=== PATIENT | female | born 1980 | race African-American/Black ===

== ENCOUNTER 2017-10-18 13:28 | Emergency (ER) | payer MEDICARE ==
[~2017-10-18] VITALS: Ht 177.8 cm; Wt 137.4 kg
--- OUTSIDE RECORDS SUMMARY | 2017-10-18 13:30 | XMS REPORT | Clinical Summary ---
Author Author [facility] Address Unknown Phone Unavailable Care Team Providers Care Job Coach Name Role Phone PCP Unavailable Allergies No Known Allergies Current Medications Prescription Sig. Disp. Refills Start End Date Status Date amLODIPine (NORVASC) 10 Take 10 mg by mouth Active MG tablet daily. hydrochlorothiazide Take 25 mg by mouth Active (HYDRODIURIL) 25 MG daily. tablet glucometer (PayfirmaYLE) Use Glucometer to check 1 each 0 07/23/19 Active MiscIndications: blood sugar as per 17 Uncontrolled type 2 instructions. diabetes mellitus without complication, without long-term current use of insulin ([facility]) labetalol (NORMODYNE) 100 Take 1 tablet (100 mg 90 tablet 1 07/23/19 01/19/20 MG tabletIndications: total) by mouth daily 17 17 Possible , with breakfast for 180 , unspecified days. gestational age blood sugar diagnostic 1 strip by Miscellaneous 400 strip 4 07/23/19 07/23/19 (GLUCOSE TEST) route 2 (two) times 17 18 StrpIndications: daily. Uncontrolled type 2 diabetes mellitus without complication, without long-term current use of insulin ([facility]) alcohol swabs Apply 1 application 400 each 4 07/23/19 07/23/19 PadMIndications: topically 2 (two) times 17 18 Uncontrolled type 2 daily For blood sugar diabetes mellitus without testing. complication, without long-term current use of insulin ([facility]) lancets MiscIndications: 1 application by 400 each 4 07/23/19 Uncontrolled type 2 Miscellaneous route 2 17 18 diabetes mellitus without (two) times daily. complication, without long-term current use of insulin ([facility]) Active Problems Problem Noted Date Annual physical exam 03/18/2016 Last Assessment & Plan: Today, we find that your physical exam is within normal limits. We have talked about losing weight and exercise. Making good food choices and increasing activity can help keep you healthy. We are ordering a CBC, CMP, TSH and UA, which are basic lab tests for your annual physical. Please complete these labs while fasting for a minimum of 8 hours. Follow up in 2 weeks for review of labs and further care. Hypertension 08/05/2015 Last Assessment & Plan: Today we note that your blood pressure is not controlled, and you have been out of your medication HCTZ for almost 2 months. We are refilling your medication HCTZ 25mg 1 tablet by mouth each morning for 6 months. We are also starting you on a second blood pressure medication called Amlodipine 10mg 1 tablet by mouth each evening for 6 months. In addition, we are ordering labs today to check your Hypertension and Diabetes. Complete these labs as soon as possible while you are fasting for a minimum of 8 hours. You have stated that you are fasting since 11 pm last night. Finally, we are ordering an EKG to be completed at the hospital next door. Complete this test as soon as possible. Please check your blood pressure at home twice per day for the next week. Check it in the AM and PM each day, and write down the results. Bring in a copy of your results on your next visit. If you find that your blood pressure is at 150/100 or higher consistently, call our office or come in for a visit. If it is high and your feel sick in any way, go directly to the closest ER. If you find that your blood pressure is at 110/70 or lower, call our office or come in for a visit. Make sure to drink plenty of water, and avoid salt as much as possible in your diet. long-term, with proper diet and exercise, weight loss will occur, and that will help your blood pressure. Follow up in 1 week to complete your Annual Physical and review your blood pressure/results. Diabetes mellitus type 2, uncontrolled (HCC) 08/05/2015 Last Assessment & Plan: Today we note that you are in need of a new glucometer and supplies. Pick these up at your pharmacy and use as directed. Follow up in 1 month for further care. 08/05/2015 Last Assessment & Plan: Today we note that you have tested positive for on our in-office urine test. Your estimated Last Menstrual Period was May 10 2016. Using that estimated date, you are about 10 weeks and 3 days , and your expected date of delivery is February 14 2017. This is an estimate and may not be accurate. More accurate dating can be found through your principal technical specialist office. We are referring you to Dr. Shin of [facility], and please call her office and make an appointment as soon as possible. Stop taking your regular vitamins, and switch to an OTC Vitamin. Continue taking your Metformin. Stop taking the Amlodipine and stop taking the Hydrochlorothiazide. We are going to start you on Labetalol for blood pressure control. Please use this new medication as prescribed. Check your blood pressure twice per day for now, and look for BP between 110/70 to 140/85. If it is outside of this window, check it again in 1 hour, and if it is high again, call our office or Dr. Shin. Follow up in our office in [address] Shin. Family History Medical History Relation Name Comments Diabetes Father Hypertension Father Diabetes Mother Hypertension Mother Relation Name Status Comments Father Mother Social History Tobacco Use Types Packs/Day Years Used Date Never Smoker Smokeless Tobacco: Never Used Alcohol Use Drinks/Week oz/Week Comments Yes socially Currently Estimated Date of Delivery Comments Yes Sex Assigned at Date Recorded Not on file Last Filed Vital Signs Not on file Plan of Treatment Health Maintenance Due Date Last Done Comments INFLUENZA VACCINE 02/07/2018 Results Not on fileafter 10/17/2016
--- OUTSIDE RECORDS SUMMARY | 2017-10-18 13:30 | XMS REPORT | Clinical Summary ---
Author Author [facility] Organization [facility] Address Unknown Phone Unavailable Care Team Providers Care Safety Fire Boss Name Role Phone Asked, Pcp PCP Unavailable Allergies No Known Allergies Current Medications Prescription Sig. Disp. Refills Start End Date Status Date Take 1 tablet by mouth Active vit,epce09-gvgx-tejae 29 daily. mg iron- 1 mg tablet per tablet NIFEdipine XL (PROCARDIA Take 30 mg by mouth 01/27/20 Discontin XL) 30 MG 24 hr tablet daily. 17 ued hydroxyprogest,PF,,preg Inject 250 mg into the 01/27/20 Discontin presv, (ADONIS) 250 mg/mL shoulder, thigh, or 17 ued (1 mL) oil buttocks every 7 days. metFORMIN (GLUCOPHAGE) Take 500 mg by mouth 2 01/27/20 Discontin 500 mg tablet (two) times a day with 17 ued meals. Active Problems Problem Noted Date S/P 01/21/2017 Obesity affecting in third trimester 01/17/2017 Advanced maternal age, primigravida in third trimester, antepartum 2016 Chronic hypertension in obstetric context in third trimester 01/17/2017 Diabetes mellitus affecting in third trimester 01/17/2017 labor in third trimester 01/17/2017 Short cervix during in third trimester 01/17/2017 History of poor outcome 01/17/2017 Encounters Date Type Specialty Care Team Description 01/21/2017 Procedure Pass Obstetrics and Gynecology 01/21/2017 Surgery Obstetrics and Gynecology Washington Chung MD DELIVERY, 01/17/2017 [facility] Obstetrics and Gynecology Washington Chung MD Obesity affecting - Encounter in third 01/25/2017 trimester (Primary Dx); Advanced maternal age, primigravida in third trimester, antepartum; Chronic hypertension in obstetric context in third trimester; Diabetes mellitus affecting in third trimester 01/17/2017 Anesthesia Obstetrics and Gynecology Raiza Fu MD Event after 10/17/2016 Immunizations Name Dates Previously Given Next Due FLUCELVAX QUAD PF (0.5mL 01/23/2017 syringe) Tdap 01/23/2017 Social History Tobacco Use Types Packs/Day Years Used Date Former Smoker Alcohol Use Drinks/Week oz/Week Comments No Sex Assigned at Date Recorded Not on file Last Filed Vital Signs Vital Sign Reading Time Taken Blood Pressure 111/62 01/25/2017 5:19 PM CDT Pulse 111 01/25/2017 5:19 PM CDT Temperature 37.1 C (98.8 F) 01/25/2017 5:19 PM CDT Respiratory Rate 19 01/25/2017 5:19 PM CDT Oxygen Saturation 99% 01/25/2017 5:19 PM CDT Inhaled Oxygen - - Concentration Weight 154 kg (340 lb) 01/18/2017 8:00 PM CDT Height 172.7 cm (5' 8") 01/18/2017 8:00 PM CDT Body Mass Index 51.7 01/18/2017 8:00 PM CDT Plan of Treatment Health Maintenance Due Date Last Done Comments DIABETIC FOOT EXAM 1989 DIABETIC RETINAL EYE EXAM 1989 URINE MICROALBUMIN 1989 CERVICAL CANCER SCREENING 2000 INFLUENZA VACCINE 12/08/2017 01/23/2017 Procedures Procedure Name Priority Date/Time Associated Diagnosis Comments ECHOCARDIOGRAM 2D Routine 01/22/2017 Results for this COMPLETE W MMODE SPECTRAL 2:05 PM CDT procedure are in the COLOR DOPPLER (57448) results section. FL AN SPINAL BLOCK Routine 01/21/2017 POST-OP PAIN 8:44 AM CDT Procedure Note - Vasyl Peñaloza MD - 01/21/2017 8:41 AM CDT Spinal Block Performed by: VASYL PEÑALOZA Authorized by: RAIZA FU Patient Location: OR Reason for Block: at surgeon's request, post-op pain management Staff: Performed by: Anesthesio logist patient identified , IV checked, site and side verified, risks and benefits discussed, procedure verified, surgical consent complete, patient position confirmed, monitors and equipment checked and pre-op evaluation complete Spinal Block: Patient Position: Sitting Prep: Betadine Monitoring : Blood pressure monitoring , continuous pulse oximetry and heart rate Approach: Midline Interspace : L2-3 Injection Technique: Single injection Needle: Needle type: Pencan. Needle Gauge: 22 G Assessment : Coagulatio n status: Coagulatio n status verified Block assessment : No apparent complicati ons and patient tolerated procedure well Post procedure: Patient returned to supine position with left lateral displaceme nt Notes: Pt had no relief from epidural after trying injecting 2% lidocaine, so I decided to perform a spinal and remove epidural. Epidural tip intact. Spinal took 3 attempts; 1st with 25Ga Pencan, which was too short, so I switched to 22Ga 5" DELIVERY, 01/21/2017 Intrauterine 12:00 AM CDT Case Notes ANESTHESIA EPIDURAL BLOCK Routine 01/20/2017 11:04 PM CDT Procedure Note - Raiza Fu MD - 01/20/2017 11:04 PM CDT Epidural Block Performed by: RAIZA FU Authorized by: RAIZA FU Patient Location: OB Start Time: 01/20/2017 10:45 PM End Time: 01/20/2017 10:50 PM Reason for Block: labor epidural Anesthesio logist: RAIZA FU Performed by: Anesthesio logisfabrizio Preprocedu re: patient identified , IV checked, site and side verified, risks and benefits discussed, procedure verified, surgical consent completed, patient position confirmed, monitors and equipment checked and pre-op evaluation completed Time Out Performed: 01/20/2017 10:44 PM Patient Position: Sitting Prep: Betadine Monitoring : Blood pressure monitoring , continuous pulse oximetry and heart rate Approach: Midline Interspace : L3-4 Injection Technique: PAUL air Needle Type: Tuohy Needle Gauge: 17 Loss of resistance : 8 cm Catheter at Skin Depth: 13 cm Test Dose: Negative and lidocaine 1.5% with epinephrin e 1-to-200,0 00 Number of Attempts: 1 Pump program started: pain pump Coagulati on status: Coagulatio n status reviewed Block Outcome: No apparent complicati ons, patient comfortabl e and patient tolerated procedure well Post-proce dure: Patient returned to supine position with left lateral displaceme nt and sterile dressing applied Time: 01/20/2017 10:45 PM Pump program changed: pain pump Patient tolerated the procedure well with no apparent complicati ons. Connected to epidural pain pump. after 10/17/2016 Results * POC glucose (01/25/2017 6:01 PM) Only the most recent of 45 results within the time period is included. Component Value Ref Range POC glucose 151 (H) 65 - 99 mg/dL Comment: Meter ID: [id number] Metal Expediter: Abelino Justin Specimen Performing Laboratory [facility] DEPARTMENT OF PATHOLOGY AND GENOMIC MEDICINE [address] [place] [address] * Urinalysis screen and microscopy, with reflex to culture (01/25/2017 12:00 PM) Only the most recent of 2 results within the time period is included. Component Value Ref Range Specimen site Clean catch Color, UA Yellow YELLOW Appearance, UA Slightly Hazy (A) Clear Specific gravity, UA 1.016 1.005 - 1.030 pH, UA 5.5 5.0 - 8.0 Protein, UA 1+ (A) Negative Glucose, UA Negative Negative Ketones, UA Negative Negative Bilirubin, UA Negative Negative Blood, UA Moderate (A) Negative Nitrite, UA Negative NEGATIVE Urobilinogen, UA 2.0 <2.0 E.U./dL Leukocyte esterase, UA Moderate (A) Negative Epithelial cells, UA 2 0 - 15 /HPF WBC, UA 13 (H) 0 - 5 /Hpf RBC, UA >200 (H) 0 - 5 /HPF Bacteria, UA None seen None seen Yeast, UA None seen None Seen Yeast with pseudohyphae, None seen UA Specimen Performing Laboratory Urine [facility] DEPARTMENT OF PATHOLOGY AND GENOMIC MEDICINE [address] [place] [address] * Gram stain (01/25/2017 12:00 PM) Component Value Ref Range Gram stain result Moderate WBC's No organisms seen Comment: Specimen Information Specimen Source: Urine Specimen Site: See UA Specimen Performing Laboratory Urine [facility] DEPARTMENT OF PATHOLOGY AND GENOMIC MEDICINE [address] [place] [address] * Urine culture (01/25/2017 12:00 PM) Only the most recent of 2 results within the time period is included. Component Value Ref Range Urine culture isolate No growth after 1 day. Comment: Specimen Information Specimen Source: Urine Specimen Site: See UA Specimen Performing Laboratory Urine [facility] DEPARTMENT OF PATHOLOGY AND GENOMIC MEDICINE [address] [place] [address] * Hemoglobin A1c (01/25/2017 5:58 AM) Component Value Ref Range Hemoglobin A1C 7.2 (H) 4.0 - 5.6 % Comment: HbA1c cutoffs for diagnosing diabetes: 4.0% - 5.6%=normal 5.7% - 6.4%=increased risk for diabetes (prediabetes) >=6.5%=diabetes Goals for glycemic control (ADA 2016) < 7.0% Target for non adults with diabetes. More or less stringent targets may be appropriate for individual patients. <7.5% Target for Children and adolescents with type 1 diabetes. Specimen Performing Laboratory Blood [facility] DEPARTMENT OF PATHOLOGY AND GENOMIC MEDICINE [address] [place] [address] * XR Chest 2 Vw (01/24/2017 11:30 PM) Specimen Performing [facility] [address] [place] [address] Narrative Examination:XR CHEST 2 VW Clinical History: Chest Pain Comparison: None. Technique: PA and lateral views of the chest were obtained. Findings: The lungs are free of infiltrate. The heart size is normal. No pleural effusion is seen. Impression: No active cardiopulmonary disease identified. [facility]-[id number] Procedure Note Interface, Radiology Results Incoming - 01/24/2017 11:35 PM CDT Examination: XR CHEST 2 VW Clinical History: Chest Pain Comparison: None. Technique: PA and lateral views of the chest were obtained. Findings: The lungs are free of infiltrate. The heart size is normal. No pleural effusion is seen. Impression: No active cardiopulmonary disease identified. [facility]-[id number] * Manual differential (01/24/2017 10:01 PM) Component Value Ref Range Neutrophils 74.0 (H) 39.0 - 69.0 % Lymphocytes 24.0 (L) 25.0 - 45.0 % Monocytes 0.0 0.0 - 10.0 % Eosinophils 0.0 0.0 - 5.0 % Basophils 0.0 0.0 - 1.0 % Metamyelocytes 2 % Platelet slide review Adequate Toxic granulation Slight (A) None seen Neutrophils, vacuolated Slight None seen Specimen Performing Laboratory [facility] DEPARTMENT OF PATHOLOGY AND GENOMIC MEDICINE [address] [facility]. [address] [place] [address] * CBC with platelet and differential (01/24/2017 10:01 PM) Only the most recent of 5 results within the time period is included. Component Value Ref Range WBC 2.1 (L)Comment: WBC was corrected for NRBCs 4.5 - 11.0 k/uL RBC 3.96 (L) 4.20 - 5.50 M/uL HGB 9.7 (L) 14.0 - 18.0 g/dL HCT 30.9 (L) 37.0 - 47.0 % MCV 78.0 (L) 82.0 - 100.0 fL MCH 24.5 (L) 27.0 - 34.0 pg MCHC 31.4 31.0 - 37.0 g/dL RDW - SD 40.8 37.0 - 55.0 fL MPV 10.7 8.8 - 13.2 fL Platelet count 237 150 - 400 K/uL Nucleated RBC 1.90 /100 WBC Neutrophils 74.0 (H) 39.0 - 69.0 % Lymphocytes 24.0 (L) 25.0 - 45.0 % Monocytes 0.0 0.0 - 10.0 % Eosinophils 0.0 0.0 - 5.0 % Basophils 0.0 0.0 - 1.0 % Specimen Performing Laboratory Blood [facility] DEPARTMENT OF PATHOLOGY AND GENOMIC MEDICINE [address] [place] [address]. [address] [place] [address] * ECG 12 lead (01/24/2017 8:31 PM) Component Value Ref Range Ventricular rate 115 Atrial rate 115 FL interval 136 QRSD interval 86 QT interval 326 QTC interval 450 P axis 1 65 QRS axis 1 47 T wave axis 15 EKG impression Sinus tachycardia-Otherwise normal ECG-- Specimen Performing Laboratory [facility] [address] [place] [address] * Echocardiogram complete w contrast and 3D if needed (01/22/2017 2:05 PM) Component Value Ref Range Velocity Ratio (V1/V2) 0.62 m/s IVS,d 1.34 (A) 0.6 - 1.2 cm EF 67.91 % LVPWD,d 1.34 cm AoV Mean PG 8.33 mmHg AV LVOT peak gradient 7.12 mmHg MV valve area p 1/2 3.21 cm2 method E/A ratio 1.46 E wave decelartion time 236.00 msec LVOT Diam,S 2.30 cm LVOT area 4.15 cm2 LVOT Vmax 1.33 m/s LVOT VTI 0.25 m AoV Peak PG 18.49 mmHg MV Peak E David 0.95 m/s MV stenosis pressure 1/2 68.44 ms time MV Peak A David 0.65 m/s AoV Area, Vmax 2.58 cm2 AoV Area, VTI 2.90 cm2 AoV Vmax 2.15 m/s IVS/LVPW,2D 1.00 Left Atrium Dimension 4.20 cm Anterior LA Area d A4C 52 cm2 LV,d 4.84 cm LV,s 3.01 cm MV E A ratio 1.50 mmHg LV SYS VOL 35.30 ml LV RAYMUNDO VOL 110.00 ml LV SV Teich 2D 74.70 ml LV Vol s Teich PSAX 35.29 ml AoV Vmn 1.32 LV FS Cube 2D 37.80 LV FS Teich 2D 37.80 AoV VTI 0.36 m LV EF,2D 75.80 % MV AE ratio 0.68 LVOT Vmn 0.89 Aov area Vmn 2.79 cm2 LA Vol d MOD A4C 51.75 ml MAX Pred HR 182.41 85 of MPHR 155.04 Calc MPHR 182.41 bpm LV SV Cube 2D 85.70 ml LV vol d cube 2D 113.00 ml LV vol s cube 2D 27.30 ml Pred Exer Dur R1 10.33 Pred METS R1 9.81 Specimen Performing Laboratory [facility] [address] [place] [address] Narrative There is mild left ventricular concentric hypertrophy The left ventricle chamber size is normal. Normal left ventricular regional wall motion Left ventricular systolic function is normal Left Ventricular ejection fraction is 60 - 65%. No pericardial effusion * Thyroid stimulating hormone (01/22/2017 10:00 AM) Component Value Ref Range TSH 2.51 0.55 - 4.78 uIU/mL Specimen Performing Laboratory Serum [facility] DEPARTMENT OF PATHOLOGY AND GENOMIC MEDICINE [address] [place] [address] * Type and screen, obstetrical patient (01/21/2017 3:50 AM) Only the most recent of 2 results within the time period is included. Component Value Ref Range ABO grouping B Rh type POS Antibody screen (gel) NEG Specimen Performing Laboratory Blood [facility] DEPARTMENT OF PATHOLOGY AND GENOMIC MEDICINE [address] [place] [address]. [address] [place] [address] * Estimated GFR (01/21/2017 3:50 AM) Only the most recent of 3 results within the time period is included. Component Value Ref Range GFR Non Af Amer >90 mL/min/1.73 m2 GFR Af Amer >90 mL/min/1.73 m2 Comment: Chronic kidney disease: <60 mL/min/1.73m2 Kidney failure: <15 mL/min/1.73m2 The estimated GFR is calculated from the IDMS-traceable Modification of Diet in Renal Disease Equation. The accuracy of the calculation is poor when the creatinine is normal. Calculated values >90 mL/min/1.73m2 are not reported. This equation has not been validated in children (<18 years), women, the elderly (>70 years), or ethnic groups other than Caucasians and Americans. Specimen Performing Laboratory Plasma specimen [facility] DEPARTMENT OF PATHOLOGY AND [facility] MEDICINE [address] [place] [address]. [address] [place] [address] * Partial thromboplastin time, activated (01/21/2017 3:50 AM) Only the most recent of 3 results within the time period is included. Component Value Ref Range PTT 24.7 23.0 - 36.0 sec Comment: PTT therapeutic range for unfractionated heparin is 66.0-112.0 seconds which corresponds to Anti-Xa 0.3-0.7 U/mL. The reference range has changed starting 10/08/2009 @12:00pm Specimen Performing Laboratory Blood [facility] PATHOLOGY AND [address] [address] * Prothrombin time with INR (01/21/2017 3:50 AM) Only the most recent of 3 results within the time period is included. Component Value Ref Range Prothrombin time 13.3 12.0 - 15.0 sec INR 1.0 Comment: The International Normalized Ratio (INR) is a therapeutic monitoring tool for patients who are stable on oral anticoagulant therapy. An INR of 2.0-3.0 is suggested for deep vein thrombosis/pulmonary embolism. Specimen Performing Laboratory Blood [facility] OF PATHOLOGY AND [address] [place] [address] * Fibrinogen (01/21/2017 3:50 AM) Only the most recent of 3 results within the time period is included. Component Value Ref Range Fibrinogen 489.0 (H)Comment: The reference range has changed 200.0 - 450.0 mg/dL starting 10/08/2009 @12:00pm Specimen Performing Laboratory Blood [facility] PATHOLOGY AND [address] [place] [address] * Uric acid level (01/21/2017 3:50 AM) Only the most recent of 3 results within the time period is included. Component Value Ref Range Uric acid 5.3 3.8 - 8.5 mg/dL Specimen Performing Laboratory Plasma specimen [facility] PATHOLOGY AND GENOMIC MEDICINE [address] [place] [address] * LDH (01/21/2017 3:50 AM) Component Value Ref Range LDH 199 (L) 300 - 600 U/L Specimen Performing Laboratory Plasma specimen [facility] PATHOLOGY AND GENOMIC MEDICINE [address] [place] [address] * Comprehensive metabolic panel (01/21/2017 3:50 AM) Only the most recent of 3 results within the time period is included. Component Value Ref Range Sodium 134 (L) 135 - 148 mEq/L Potassium 4.3 3.5 - 5.0 mEq/L Chloride 100 99 - 109 mEq/L CO2 21 (L) 24 - 31 mEq/L Anion gap 13 7 - 15 mEq/L Comment: Starting from August , anion gap calculation no longer incorporates potassium. Please note the change. BUN 7 (L) 8 - 24 mg/dL Creatinine 0.7 0.5 - 1.5 mg/dL Glucose 104 (H) 65 - 99 mg/dL Calcium 8.0 (L) 8.6 - 10.6 mg/dL Protein 7.1 6.3 - 8.2 g/dL Albumin 3.4 (L) 3.5 - 5.0 g/dL A/G ratio 0.92 0.70 - 3.80 Alkaline phosphatase 76 30 - 115 U/L AST 33 15 - 46 U/L ALT 30 10 - 55 U/L Total bilirubin 0.2 0.2 - 1.2 mg/dL Specimen Performing Laboratory Plasma specimen [facility] OF PATHOLOGY AND GENOMIC MEDICINE [address] [place], [place] [id number] * US Biophysical Profile (01/20/2017 11:35 AM) Only the most recent of 2 results within the time period is included. Specimen Performing Laboratory [facility] [address] [place] [address] Narrative EXAMINATION:US BIOPHYSICAL PROFILE CLINICAL HISTORY:hypertension COMPARISON:None. TECHNIQUE: Biophysical profile was performed. Transabdominal images were obtained. FINDINGS: The biophysical profile score is 8/8. breathing, movement, and tone are identified. The amniotic fluid index is 12.1. heart rate is measured at 136 bpm. Umbilical cord peak systolic end diastolic ratio is 3.0. The fetus is in cephalic presentation. The placenta is anterior in location. Cervical length is not well seen. IMPRESSION: Normal biophysical profile examination. [facility]-[id number] Procedure Note Hm Interface, Radiology Results Incoming - 01/20/2017 12:01 PM CDT EXAMINATION: US BIOPHYSICAL PROFILE CLINICAL HISTORY: hypertension COMPARISON: None. TECHNIQUE: Biophysical profile was performed. Transabdominal images were obtained. FINDINGS: The biophysical profile score is 8/8. breathing, movement, and tone are identified. The amniotic fluid index is 12.1. heart rate is measured at 136 bpm. Umbilical cord peak systolic end diastolic ratio is 3.0. The fetus is in cephalic presentation. The placenta is anterior in location. Cervical length is not well seen. IMPRESSION: Normal biophysical profile examination. [facility]-[id number] * Fasting glucose level (01/20/2017 5:10 AM) Component Value Ref Range Glucose, fasting 136 (H) 65 - 99 mg/dL Specimen Performing Laboratory Blood [facility] DEPARTMENT OF PATHOLOGY AND GENOMIC MEDICINE [address] [place] [address] * OB magnesium level (01/18/2017 11:58 PM) Component Value Ref Range OB magnesium level 5.5Comment: Therapeutic level after IV Magnesium 4.1 - 6.9 mg/dL Sulfate is given 4.1-6.9 mg/dl Specimen Performing Laboratory Plasma specimen [facility] DEPARTMENT OF PATHOLOGY AND GENOMIC MEDICINE [address] [place] [address] * Magnesium level (01/18/2017 6:44 PM) Only the most recent of 5 results within the time period is included. Component Value Ref Range Magnesium 5.8 (HH) 1.7 - 2.4 mg/dL Comment: Final results called to and read back by AYUSH RAMOS RN 01/18/2017 20:27 WRUN Specimen Performing Laboratory Plasma specimen [facility] DEPARTMENT OF PATHOLOGY AND GENOMIC MEDICINE [address] [place] [address] * Protein, urine, 24 hour (01/18/2017 12:10 AM) Component Value Ref Range Collection start date, 01/17/17 urine Collection start time, 10 urine Collection stop date, 01/18/17 urine Collection stop time, 10 urine Hours of collection 24 Total volume, urine 4,300 mL Urine protein 11 mg/dl concentration Urine protein 24 hr 473 (H)Comment: Reference range not applicable for 30 - 150 mg/hrs col. excretion random specimens. Specimen Performing Laboratory Urine [facility] DEPARTMENT OF PATHOLOGY AND GENOMIC MEDICINE [address] [facility] [place] [address] * [place] Limited (01/17/2017 2:53 AM) Specimen Performing Laboratory [facility] [address] [place] [address] Narrative EXAMINATION:US LIMITED CLINICAL HISTORY:[id number] COMPARISON:None. TECHNIQUE: Transabdominal sonographic images of the pelvis were obtained. Grayscale, color Doppler, and spectral waveform analysis of the ovarian vessels was performed. FINDINGS: Single intrauterine is identified. Placenta is anterior grade 2. presentation is cephalic. The following measurements were obtained: Biparietal diameter: 7.53 cm, corresponding with gestation age of 30 weeks and 1 day Head circumference: 27.59 cm, corresponding with gestation age of 30 weeks and 1 day Abdominal circumference: 26.22 cm, corresponding with gestation age of 30 weeks and 3 days Femur length: 6.14 cm, corresponding with gestation age of 31 weeks and 6 days Estimated weight: 1641 g. This is at the 35th percentile. Amniotic fluid index measures 10.2 cm. The single deepest pocket measures 3.1 cm. heart tones measure 134 bpm. Peak systolic/end diastolic ratio of the umbilical artery measures 2.4. The cervix cannot be seen and the length was not assessed. Impression: A single viable intrauterine is identified. Gestational age by last menstrual period is 30 weeks and 6 days with estimated due date of 03/22/2017. Gestational age by ultrasound criteria is 30 weeks and 5 days with estimated due date of 03/23/2017. heart tones measure 134 bpm. Placenta is anterior grade 2. presentation is cephalic. [id number] Procedure Note Interface, Radiology Results Incoming - 01/17/2017 3:24 AM CDT EXAMINATION: US LIMITED CLINICAL HISTORY: PTL DM CHTN COMPARISON: None. TECHNIQUE: Transabdominal sonographic images of the pelvis were obtained. Grayscale, color Doppler, and spectral waveform analysis of the ovarian vessels was performed. FINDINGS: Single intrauterine is identified. Placenta is anterior grade 2. presentation is cephalic. The following measurements were obtained: Biparietal diameter: 7.53 cm, corresponding with gestation age of 30 weeks and 1 day Head circumference: 27.59 cm, corresponding with gestation age of 30 weeks and 1 day Abdominal circumference: 26.22 cm, corresponding with gestation age of 30 weeks and 3 days Femur length: 6.14 cm, corresponding with gestation age of 31 weeks and 6 days Estimated weight: 1641 g. This is at the 35th percentile. Amniotic fluid index measures 10.2 cm. The single deepest pocket measures 3.1 cm. heart tones measure 134 bpm. Peak systolic/end diastolic ratio of the umbilical artery measures 2.4. The cervix cannot be seen and the length was not assessed. Impression: A single viable intrauterine is identified. Gestational age by last menstrual period is 30 weeks and 6 days with estimated due date of 03/22/2017. Gestational age by ultrasound criteria is 30 weeks and 5 days with estimated due date of 03/23/2017. heart tones measure 134 bpm. Placenta is anterior grade 2. presentation is cephalic. [facility]-[id number] * Beta strep screen culture with couch broth (01/17/2017 1:53 AM) Component Value Ref Range Beta strep screen culture No Group B Streptococcus isolated isolate Comment: Specimen Information Specimen Source: Vaginal Specimen Site: Vaginal/rectal Specimen Performing Laboratory Vaginal - Vaginal/rectal [facility] DEPARTMENT OF PATHOLOGY AND GENOMIC MEDICINE [address] [place] [address] * Syphilis treponemal IgG (01/17/2017 1:35 AM) Component Value Ref Range Syphilis treponemal IgG Non-reactiveComment: Non-reactive: No serological Non-reactive evidence of Syphilis infection Specimen Performing Laboratory Serum [facility] DEPARTMENT OF PATHOLOGY AND GENOMIC MEDICINE [address] [place] [address] * HIV 1, 2 antibody (01/17/2017 1:35 AM) Component Value Ref Range HIV 1, 2 antibody Non-reactive Non-reactive Specimen Performing Laboratory Blood [facility] DEPARTMENT OF PATHOLOGY AND GENOMIC MEDICINE [address] [place] [address] * Hepatitis B surface antigen (01/17/2017 1:35 AM) Component Value Ref Range Hepatitis B surface Ag Non-reactive Non-reactive Specimen Performing Laboratory Blood [facility] [address] [place] [address] * Urine drugs of abuse screen (01/17/2017 12:10 AM) Component Value Ref Range Amphetamine screen, urine Negative Barbiturate screen, urine Negative Benzodiazepine screen, Negative urine Cannabinoid screen, urine Negative Cocaine screen, urine Negative Methadone metabolite Negative (EDDP), urine Opiates screen, urine Negative Oxycodone screen, urine Negative Phencyclidine screen, Negative urine Tricyclic screen, urine Negative Comment: Drug screen minimum concentration of detectability Amphetamines 1000 ng/mL Barbiturates 200 ng/mL Benzodiazepines 300 ng/mL Cocaine 300 ng/mL Methadone 3 00 ng/mL Opiates 300 ng/mL Oxycodone 3 00 ng/mL Phencyclidine 25 ng/mL Cannabinoids 50 ng/mL Tricyclics 1000 ng/mL Negative test results indicates presumptive evidence of lack of clinically significant drug concentration in this urine specimen. Positive test results are presumptive evidence of clinically significant drug concentration in this urine specimen. Testing performed for medical purposes only. Specimen Performing Laboratory Urine [facility]PART[facility] OF [facility]OLOG[facility]OMIC MEDIC[facility] [id number] [place] [address]. [address] [place] [address] after 10/17/2016 Insurance Payer Benefit Subscriber ID Type Phone Address Plan / Group [employer] [facility] xxxxxxxxx [facility] [place] [address]
[2017-10-18 14:23] VITALS: BP 188/94
== END 2017-10-18 14:24 | disposition home or self-care (01) ==
LOC: FSED 13:28
DX: R10.30 Lower abdominal pain, unspecified (principal); M54.42 Lumbago with sciatica, left side; R39.15 Urgency of urination; Z33.1 Pregnant state, incidental
CPT/HCPCS: 36415; 81003; 84702; 99283

== ENCOUNTER 2021-11-15 23:11 | Emergency (ER) | payer MEDICARE, OTHER ==
[~2021-11-15] VITALS: Ht 177.8 cm; Wt 137.4 kg
[2021-11-15] MEDS ORDERED: SODIUM CHLORIDE 0.9% 1000ML 1,000 ML STA (23:52)
[2021-11-16] MEDS ORDERED: KETOROLAC TROMETHAMINE 30 MG/ML VIAL IV ONE
[2021-11-16] MEDS ORDERED: SODIUM CHLORIDE 0.9% 1000ML 1,000 ML ONE (00:09)
[2021-11-16] MEDS ORDERED: KETOROLAC TROMETHAMINE 30 MG/ML VIAL ONE (00:09)
[2021-11-16] MEDS ORDERED: Morphine 4mg INJECTION 4 MG/ML INJ ONE (01:15)
[2021-11-16] MEDS ORDERED: ONDANSETRON HCL INJ 2MG/ML 2ML 2 MG/ML VIAL IV ONE (01:15)
[2021-11-16] MEDS ORDERED: Morphine 4mg INJECTION 4 MG/ML INJ IV ONE (01:15)
[2021-11-16] MEDS ORDERED: HYDRALAZINE HCL 20 MG/ML VIAL IV ONE (01:45)
[2021-11-16] MEDS ORDERED: HYDRALAZINE HCL 20 MG/ML VIAL ONE (01:56)
[2021-11-16] MEDS ORDERED: CYCLOBENZAPRINE10 MG PO (02:11)
[2021-11-16] MEDS ORDERED: HYDROCHLOROTHIA25 MG PO (02:11)
== END 2021-11-16 02:22 | disposition home or self-care (01) ==
LOC: FSED 23:48
DX: M54.50 Low back pain, unspecified (principal); E11.65 Type 2 diabetes mellitus with hyperglycemia; I10 Essential (primary) hypertension
CPT/HCPCS: 74176; 99284; J0360; J1885; J2270; J7030

== ENCOUNTER 2022-09-27 07:43 | Emergency (ER) | payer SELFPAY ==
[~2022-09-27] VITALS: Ht 180.3 cm; Wt 132.0 kg
[~2022-09-27 07:43] MED LIST: CYCLOBENZAPRINE10 MG PO; HYDROCHLOROTHIA25 MG PO
[2022-09-27] MEDS ORDERED: KETOROLAC TROMETHAMINE 30 MG/ML VIAL IV STA (07:55)
[2022-09-27] MEDS ORDERED: KETOROLAC TROMETHAMINE 30 MG/ML VIAL ONE (08:05)
[2022-09-27 08:36] VITALS: O2SAT 99
[2022-09-27] MEDS ORDERED: MACROBID 100 M100 MG PO (09:30)
[2022-09-27] MEDS ORDERED: DOCUSATE SODIU100 MG PO (09:30)
[2022-09-27] MEDS ORDERED: METHOCARBAMOL500 MG PO (09:30)
[2022-09-27] MEDS ORDERED: FERROUS SULFAT325 M1 PO (09:30)
[2022-09-27] MEDS ORDERED: NAPROSYN500 MG PO (09:30)
== END 2022-09-27 09:49 | disposition home or self-care (01) ==
LOC: FSED 07:48
DX: S39.012A Strain of muscle, fascia and tendon of lower back, initial encounter (principal); M48.061 Spinal stenosis, lumbar region without neurogenic claudication; N39.0 Urinary tract infection, site not specified; E11.65 Type 2 diabetes mellitus with hyperglycemia; K59.00 Constipation, unspecified; D64.9 Anemia, unspecified
CPT/HCPCS: 72131; 74176; 80048; 80076; 81003; 81025; 85025; 99284; J1885